=== PATIENT | male | born 1960 | race Two or more races ===

== ENCOUNTER 2017-01-09 13:52 | Emergency (ER) | payer MEDICARE, MEDICAID ==
[~2017-01-09] VITALS: Ht 177.8 cm; Wt 93.0 kg
[~2017-01-09 13:52] MED LIST: ATIVAN1 MG PO; AVODART0.5 MG PO; BENADRYL25 MG PO; BENZTROPINE ME0.5 MG PO; BENZTROPINE MESY1 MG PO; COGENTIN1 MG PO; DOMEBORO PACKE1 EACH TOP; EPIPEN0.3 MG/0.3 SUBCUT; FENOFIBRATE160 MG PO; FERROUS SULFAT325 M1 PO; FISH OIL1 GM PO; HALDOL DEC100 MG/1 M IM; HALDOL5 MG PO; HALDOL5 MG/1 M1 IM; HALOPERIDOL2 MG PO; KLOR-CON M1010 MEQ PO; LAMICTAL100 MG PO; LAMICTAL200 MG PO; LATUDA120 MG PO; LATUDA80 MG PO; LEXAPRO10 MG PO; LOTRIMIN AF28.35 GM TOP; LOTRISONE15 GM TOP; MEDROL4 MG PO; MILK OF MAGNESI30 ML PO; MIRALAX17 GM PO; NEXIUM40 MG PO; PILOCARPINE HCL5 MG PO; PRAVACHOL80 MG PO; PROAIR HFA8.5 GM INH; PROCTOSOL-HC28.35 GM TOP; PROCTOZONE-HC30 GM RECTAL; REMERON15 MG PO; RISPERDAL25 MG/2 ML IM; SEROQUEL50 MG PO; SPIRIVA RESPIMAT4 GM INH; SYNTHROID100 MCG PO; THERA M PLUS T1 EACH PO; TOPAMAX200 MG PO; TUMS500 MG PO; TYLENOL500 MG PO; VALIUM5 MG PO; VENTOLIN HFA8 GM INH; VITAMIN B-1000 MCG/1 SUBCUT; VITAMIN D2000 UNIT PO; ZYRTEC10 MG PO
[2017-06-24] MEDS ORDERED: ATARAX25 MG PO (21:30)
== END 2017-01-09 14:40 | disposition short-term general hospital (02) ==
LOC: ER 13:52
DX: F20.9 Schizophrenia, unspecified (principal); M25.561 Pain in right knee; F17.210 Nicotine dependence, cigarettes, uncomplicated
CPT/HCPCS: J2060

== ENCOUNTER 2017-01-24 15:37 | Emergency (ER) | payer MEDICARE, MEDICAID ==
[~2017-01-24] VITALS: Ht 177.8 cm; Wt 93.0 kg
[2017-06-24] MEDS ORDERED: ATARAX25 MG PO (21:30)
== END 2017-01-24 18:50 | disposition short-term general hospital (02) ==
LOC: ER 15:37
DX: J06.9 Acute upper respiratory infection, unspecified (principal); K21.9 Gastro-esophageal reflux disease without esophagitis; E78.5 Hyperlipidemia, unspecified; E03.9 Hypothyroidism, unspecified; G47.00 Insomnia, unspecified; G40.909 Epilepsy, unspecified, not intractable, without status epilepticus; F20.9 Schizophrenia, unspecified; Z79.899 Other long term (current) drug therapy; F17.210 Nicotine dependence, cigarettes, uncomplicated; Z88.2 Allergy status to sulfonamides; Z88.8 Allergy status to other drugs, medicaments and biological substances; Z88.5 Allergy status to narcotic agent; Z91.030 Bee allergy status; J44.9 Chronic obstructive pulmonary disease, unspecified

== ENCOUNTER 2017-01-30 18:36 | Emergency (ER) | payer MEDICARE, MEDICAID ==
[~2017-01-30] VITALS: Ht 177.8 cm; Wt 92.1 kg
[2017-01-30] MEDS ORDERED: AUGMENTIN 875-1 EACH PO (19:13)
[2017-01-30] MEDS ORDERED: PREDNISONE1 MG PO (19:13)
[2017-01-30] MEDS ORDERED: XOPENEX1.25 MG/3 INH (19:17)
[2017-06-24] MEDS ORDERED: ATARAX25 MG PO (21:30)
== END 2017-01-30 20:00 | disposition short-term general hospital (02) ==
LOC: ER 18:36
DX: J40 Bronchitis, not specified as acute or chronic (principal); J18.9 Pneumonia, unspecified organism; F17.210 Nicotine dependence, cigarettes, uncomplicated

== ENCOUNTER 2017-03-17 16:58 | Emergency (ER) | payer MEDICARE, MEDICAID ==
[~2017-03-17] VITALS: Ht 177.8 cm; Wt 95.3 kg
[~2017-03-17 16:58] MED LIST changes: +AUGMENTIN 875-1 EACH PO; +PREDNISONE1 MG PO; +XOPENEX1.25 MG/3 INH
[2017-06-24] MEDS ORDERED: ATARAX25 MG PO (21:30)
== END 2017-03-17 17:55 | disposition short-term general hospital (02) ==
LOC: ER 16:58
DX: F20.9 Schizophrenia, unspecified (principal); M79.1 Myalgia; M54.5 Low back pain; F41.9 Anxiety disorder, unspecified
CPT/HCPCS: J2060

== ENCOUNTER → 2017-03-23 | Outpatient (CLI) | payer MEDICARE, MEDICAID ==
[~2017-03-23] MED LIST changes: +ATARAX25 MG PO
== END | disposition short-term general hospital (02) ==
LOC: CLPHYS 13:31 → CLPULM 13:31 → CLPHYS 15:50
DX: J18.9 Pneumonia, unspecified organism (principal); J84.9 Interstitial pulmonary disease, unspecified; J44.9 Chronic obstructive pulmonary disease, unspecified; G47.33 Obstructive sleep apnea (adult) (pediatric); F20.9 Schizophrenia, unspecified; G50.0 Trigeminal neuralgia; E03.9 Hypothyroidism, unspecified; K21.9 Gastro-esophageal reflux disease without esophagitis; Z87.19 Personal history of other diseases of the digestive system; Z86.69 Personal history of other diseases of the nervous system and sense organs; Z72.0 Tobacco use

== ENCOUNTER 2017-03-29 16:50 | Emergency (ER) | payer MEDICARE, MEDICAID ==
[~2017-03-29] VITALS: Ht 177.8 cm; Wt 96.2 kg
[~2017-03-29 16:50] MED LIST changes: -ATARAX25 MG PO
[2017-06-24] MEDS ORDERED: ATARAX25 MG PO (21:30)
== END 2017-03-29 18:38 | disposition short-term general hospital (02) ==
LOC: ER 16:50
DX: F20.9 Schizophrenia, unspecified (principal); G50.0 Trigeminal neuralgia; Z79.899 Other long term (current) drug therapy
CPT/HCPCS: J1885; J2060

== ENCOUNTER 2017-04-06 19:06 | Emergency (ER) | payer MEDICARE, MEDICAID ==
[~2017-04-06] VITALS: Ht 177.8 cm; Wt 96.2 kg
[2017-06-24] MEDS ORDERED: ATARAX25 MG PO (21:30)
== END 2017-04-06 19:52 | disposition short-term general hospital (02) ==
LOC: ER 19:06
DX: F20.9 Schizophrenia, unspecified (principal); Z79.899 Other long term (current) drug therapy
CPT/HCPCS: J2060

== ENCOUNTER 2017-04-11 17:56 | Emergency (ER) | payer MEDICARE, MEDICAID ==
[~2017-04-11] VITALS: Ht 177.8 cm; Wt 95.3 kg
[2017-06-24] MEDS ORDERED: ATARAX25 MG PO (21:30)
== END 2017-04-11 19:30 | disposition short-term general hospital (02) ==
LOC: ER 17:56
DX: R56.9 Unspecified convulsions (principal); Z79.899 Other long term (current) drug therapy; Z88.5 Allergy status to narcotic agent; Z88.2 Allergy status to sulfonamides; Z88.8 Allergy status to other drugs, medicaments and biological substances

== ENCOUNTER → 2017-04-16 | Outpatient (CLI) | payer MEDICARE, MEDICAID ==
[~2017-04-16] MED LIST changes: +ATARAX25 MG PO
== END | disposition short-term general hospital (02) ==
LOC: CLPAIN 11:16
DX: F45.42 Pain disorder with related psychological factors (principal)